=== PATIENT | male | born 1980 | race Asian ===

== ENCOUNTER 2017-06-20 07:12 | Emergency (ER) | payer MEDICAID ==
[~2017-06-20] VITALS: Ht 172.7 cm; Wt 58.0 kg
[2017-06-20] MEDS ORDERED: ONDANSETRON HCL 4MG/2ML VIAL IV STA (07:36)
[2017-06-20] MEDS ORDERED: FAMOTIDINE 20MG/2ML VIAL IV STA (07:36)
[2017-06-20] MEDS ORDERED: SODIUM CHLORIDE 0.9% 1,000 ML IV ONE ×2 (07:36→10:16)
[2017-06-20 07:57] LABS: BASOPHILS % 0.6 % (0.0-2.0); EOSINOPHILS % 0.5 % (0.0-5.0); HEMATOCRIT. 46.8 % (42.0-52.0); HEMOGLOBIN. 16.1 g/dL (14.0-18.0); LYMPHOCYTES % 11.5 % (20.0-50.0); MEAN CORPUSCULAR HEMOGLOBIN 28.9 pg (28.0-32.0); MEAN CORPUSCULAR VOLUME 83.8 fL (80.0-94.0); MEAN PLATELET VOLUME 8.7 fl (7.4-10.4); MONOCYTES % 6.1 % (2.0-8.0); NEUTROPHILS % 81.3 % (40.0-76.0); PLATELET 192 x1000/uL (130-400); RED BLOOD CELL COUNT 5.58 mill/uL (4.7-6.1); RED CELL DISTRIBUTION WIDTH 14.8 % (11.6-14.6)
[2017-06-20 08:00] LABS: CHLORIDE 103 mEq/L (98-107)
[2017-06-20] MEDS ORDERED: MORPHINE SULFATE 4 MG/ML CPJ (NOT FOR IM USE) IV ONE ×2 (08:00→10:30)
[2017-06-20 08:03] LABS: INR 1.1; PARTIAL THROMBOPLASTIN TIME 29.4 sec (23.4-31.0); PROTHROMBIN TIME 11.2 sec (9.4-11.6)
[2017-06-20 08:09] LABS: CARBON DIOXIDE 29 mEq/L (21-32)
[2017-06-20 09:00] LABS: CLARITY URINE CLEAR (CLEAR); COLOR URINE YELLOW (YELLOW); GLUCOSE URINE NEGATIVE (NEGATIVE); KETONES URINE 2+ (NEGATIVE); LEUKOCYTE ESTERASE URINE NEGATIVE (NEGATIVE); NITRITE URINE NEGATIVE (NEGATIVE); OCCULT BLOOD URINE 2+ (NEGATIVE); PH URINE 6.5 (4.5-8.0); PROTEIN URINE NEGATIVE (NEGATIVE); SPECIFIC GRAVITY URINE 1.014 (1.005-1.030); UROBILINOGEN URINE 0.2 E.U./dL (0.2-1.0)
[2017-06-20] MEDS ORDERED: ONDANSETRON HCL 4MG/2ML VIAL IV ONE (10:30)
[2017-06-20] MEDS ORDERED: SODIUM CHLORIDE 0.9% 10ML VIAL ONE (11:08)
[2017-06-20] MEDS ORDERED: IOHEXOL-300 100 ML BOTTLE ONE (11:08)
[2017-06-20 16:59] VITALS: BP 121/72
== END 2017-06-20 16:59 | disposition left against medical advice (07) ==
LOC: ER 07:57 → ENRESERV 16:45 → CANBEDREQ 16:59 → ER 16:59
DX: N20.0 Calculus of kidney (principal); N13.9 Obstructive and reflux uropathy, unspecified
CPT/HCPCS: 36415; 74177; 80053; 81001; 83690; 85025; 85610; 85730; 96361; 96374; 96375; 96376; 99285; A4216; J2270; J2405; J3490; J7030; Q9967; Z7610